=== PATIENT | male | born 1990 | race Caucasian/White ===

== ENCOUNTER 2018-10-11 09:02 | Emergency (ER) | payer SELFPAY ==
[2018-10-11 09:24] VITALS: BP 131/77
[2018-10-11] MEDS ORDERED: DEXAMETHASONE 10 MG/ML VIAL PO STA (10:16)
--- NOTE | 2018-10-11 10:18 | ED Physician Documentation ---
PD HPI HEENT - Stated complaint Stated Complaint: SORE THROAT - Chief complaint Chief Complaint: Heent - History obtained from History obtained from: Patient, Friend - History of Present Illness Timing - onset: How many days ago (2) Timing - duration: Days (2) Timing - details: Gradual onset, Still present Location: Right ear, Throat Improves: Medication Worsens: Swalllowing Associated symptoms: Congestion, Rhinorrhea, Swollen nodes, Cough. No: Fever Similar symptoms before: Has not had sx before Recently seen: Not recently seen - Additional information Additional information: Previously well 28-year-old male who is [employer] has developed a sore throat over the past 2 days and chills. He has had a little bit of a cough. He is able to swallow but has pain with swallowing. He is developed a headache as well. Review of Systems Constitutional: reports: Chills, Myalgias, Fatigue Eyes: denies: Decreased vision Ears: reports: Ear pain Nose: reports: Rhinorrhea / runny nose, Congestion Throat: reports: Sore throat Cardiac: denies: Chest pain / pressure, Palpitations Respiratory: reports: Cough. denies: Dyspnea GI: denies: Vomiting PD PAST MEDICAL HISTORY - Past Medical History Past Medical History: No - Past Surgical History Past Surgical History: No - Present Medications Home Medications: Ambulatory Orders Medication Instructions Recorded Confirmed Amox/Clav 875/125 [Augmentin 1 each PO Q12H #20 tablet 10/11/18 875/125] - Allergies Allergies/Adverse Reactions: Allergies Allergy/AdvReac Type Severity Reaction Status Date / Time No Known Drug Allergies Allergy Verified 10/11/18 09:16 - Social History Does the pt smoke?: No Smoking Status: Never smoker Does the pt have substance abuse?: No PD ED PE NORMAL - Vitals Vital signs reviewed: Yes (hypertensive) - General General: Alert and oriented X 3, No acute distress, Well developed/nourished - HEENT HEENT: Atraumatic, PERRL, EOMI, Other (The right TM is clear there is central inflamation and distortion of the umbo on the left. The pharynx is with 2+ crypitc tonsils with exudate ) - Neck Neck: Supple, no meningeal sign, No bony TTP - Cardiac Cardiac: RRR, No murmur - Respiratory Respiratory: No respiratory distress, Clear bilaterally - Abdomen Abdomen: Soft, Non tender - Back Back: No CVA TTP, No spinal TTP - Derm Derm: Normal color, Warm and dry, No rash - Extremities Extremities: No deformity, No edema - Neuro Neuro: Alert and oriented X 3, natural science manager 2-12 intact, No motor deficit, No sensory deficit, Normal speech Eye Opening: Spontaneous Motor: Obeys Commands Verbal: Oriented GCS Score: 15 - Psych Psych: Normal mood, Normal affect Results - Vitals Vitals: Vital Signs - 24 hr 10/11/18 09:11 Temperature 36.2 C L Heart Rate 89 Respiratory 16 Rate Blood Pressure 131/77 H O2 Saturation 97 Oxygen O2 Source Room air - Labs Labs: Laboratory Tests 10/11/18 09:18 Group A Strep Rapid Negative PD MEDICAL DECISION MAKING - ED course Complexity details: considered differential, d/w patient ED course: 28 y/o male with sore throat and chills has a negative [place] strep and on exam has exudative cryptic tonsils and inflammation in the left ear. He is administered decadron and we will place him on some augmentin. Departure - Departure Disposition: Home, Self Care Clinical Impression: Tonsillopharyngitis Otitis media Qualifiers: Otitis media type: suppurative Chronicity: acute Laterality: left Recurrence: not specified as recurrent Spontaneous tympanic membrane rupture: without spontaneous rupture Qualified Code(s): H66.002 - Acute suppurative otitis media without spontaneous rupture of ear drum, left ear Condition: Stable Instructions: ED Otitis Media Acute Adult, ED Tonsillitis Follow-Up: Your, doctor [Other] Prescriptions: Amox/Clav 875/125 [Augmentin 875/125] 1 each PO Q12H #20 tablet
[2018-10-11] MEDS ORDERED: CHERRY SYRUP 10 ML UDC PO ONE (10:27)
== END 2018-10-11 10:28 | disposition home or self-care (01) ==
LOC: ED 09:02
DX: J03.90 Acute tonsillitis, unspecified (principal); H66.002 Acute suppurative otitis media without spontaneous rupture of ear drum, left ear
CPT/HCPCS: 87070; 87430; 99283; A9270